=== PATIENT | female | born 1985 | race Two or more races ===

== ENCOUNTER 2018-03-15 11:45 | Emergency (ER) | payer OTHER ==
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
--- NOTE | 2018-03-19 15:05 | CR ---
Cervical spine: AP, lateral, oblique and odontoid views of the cervical spine were obtained. Comparison: No previous study. Vertebral body heights and disc spaces are maintained. Neural foramina are widely patent. Minimal scoliosis is noted. No subluxation or fracture is seen. Impression: 1. Minimal scoliosis. 2. No acute abnormality is identified on cervical spine exam. Diagnostic code #1
--- NOTE | 2018-03-19 15:05 | CR ---
Lumbar spine: AP and lateral views of the lumbar spine were obtained. Comparison: No previous lumbar spine imaging. Slight disc space narrowing with anterior osteophytes are noted at T10-T11. Other disc spaces are maintained. Vertebral body heights are maintained. Pedicles as well as transverse and spinous processes are intact. No subluxation or fracture is seen. Sacroiliac joints are within normal limits. Impression: 1. Slight degenerative change at T10-T11. 2. Nothing acute is appreciated on two-view lumbar spine study. Diagnostic code #2
--- NOTE | 2018-03-19 15:05 | CR ---
Thoracic spine: AP, lateral and swimmer's view of the thoracic spine was obtained. Slight disc space narrowing with anterior osteophytes are again seen at T10-T11. Other disc spaces are maintained. Vertebral body heights are maintained. Mild scoliosis is seen. Pedicles are intact. No subluxation or fracture is seen. Impression: 1. Slight scoliosis and degenerative change. Nothing acute is appreciated on three-view thoracic spine study. Diagnostic code #2
== END 2018-03-15 13:30 | disposition home or self-care (01) ==
LOC: JD.ED 11:45
DX: M62.838 Other muscle spasm (principal)
CPT/HCPCS: 72050; 72050-26; 72072; 72072-26; 72100; 72100-26; 99283; 99284